=== PATIENT | female | born 1960 | race Caucasian/White ===

== ENCOUNTER → 2016-12-16 | Outpatient (CLI) | payer BC | LOC: BRMIMAGING 07:58 | PROVIDERS: ATTEND Family Medicine | DX: Z12.31 Encounter for screening mammogram for malignant neoplasm of breast (principal); Z80.3 Family history of malignant neoplasm of breast | CPT/HCPCS: G0202 ==

== ENCOUNTER → 2017-12-18 | Outpatient (CLI) | payer BC | LOC: BRMIMAGING 07:39 | PROVIDERS: ATTEND Family Medicine | DX: Z12.31 Encounter for screening mammogram for malignant neoplasm of breast (principal); Z80.3 Family history of malignant neoplasm of breast ==